=== PATIENT | male | born 1955 ===

== ENCOUNTER 2022-08-01 10:40 | Emergency (ER) | payer SELFPAY | END 2022-08-01 13:41 | disposition home or self-care (01) | LOC: ERS 10:40 | DX: M25.561 Pain in right knee (principal); M79.10 Myalgia, unspecified site; F17.220 Nicotine dependence, chewing tobacco, uncomplicated ==

== ENCOUNTER 2023-06-05 13:10 | Outpatient (CLI) | payer MEDICARE, OTHER | END 2023-06-05 13:11 | disposition home or self-care (01) | LOC: LABBT 13:10 | PROVIDERS: ATTEND Orthopaedic Surgery | DX: Z01.818 Encounter for other preprocedural examination (principal); M17.12 Unilateral primary osteoarthritis, left knee | CPT/HCPCS: 71046; 93005; 93010 ==

== ENCOUNTER 2023-06-11 | Observation (INO) | payer MEDICARE, OTHER | END 2023-06-12 11:10 | disposition home or self-care (01) | PROVIDERS: ADMIT Orthopaedic Surgery | PROC: 0SRD0JZ Replacement of Left Knee Joint with Synthetic Substitute, Open Approach (ICD-10-PCS; principal; 2023-06-11) | PROC: 0S9C3ZZ Drainage of Right Knee Joint, Percutaneous Approach (ICD-10-PCS; 2023-06-11) | DX: M17.0 Bilateral primary osteoarthritis of knee (principal); E66.9 Obesity, unspecified; M54.9 Dorsalgia, unspecified; Z98.890 Other specified postprocedural states; Z86.010 Personal history of colon polyps; Z79.899 Other long term (current) drug therapy; F17.200 Nicotine dependence, unspecified, uncomplicated; Z68.37 Body mass index [BMI] 37.0-37.9, adult ==